=== PATIENT | male | born 1990 | race Two or more races ===

== ENCOUNTER 2017-09-25 20:08 | Emergency (ER) | payer MEDICAID ==
[~2017-09-25] VITALS: Ht 172.7 cm; Wt 68.0 kg
[2017-09-25 20:20] VITALS: BP 135/88
[2017-09-25] MEDS ORDERED: IBUPROFEN 600 MG TABLET PO ONE ×2 (20:36→21:00)
[2017-09-25] MEDS ORDERED: HYDROCODONE/APAP 5/325MG 1 EACH TABLET PO ONE (22:00)
[2017-09-25] MEDS ORDERED: HYDROCODONE/APAP 5/325MG 1 EACH TABLET ONE (22:03)
== END 2017-09-25 23:08 | disposition home or self-care (01) ==
LOC: ER 20:15
DX: S92.351A Displaced fracture of fifth metatarsal bone, right foot, initial encounter for closed fracture (principal); X50.9XXA Other and unspecified overexertion or strenuous movements or postures, initial encounter; Y93.01 Activity, walking, marching and hiking; Y92.89 Other specified places as the place of occurrence of the external cause; Y99.8 Other external cause status
CPT/HCPCS: 73610-TC; 73630-TC; A4606; Z7610